=== PATIENT | male | born 1990 | race Caucasian/White ===

== ENCOUNTER 2017-08-25 15:01 | Emergency (ER) | payer OTHER ==
[2017-08-25] MEDS ORDERED: SODIUM CHLORIDE 0.9% 1,000 ML IV STA (15:09)
[2017-08-25 15:30] LABS: Basophils # (A) 0.1 k/uL (0-0.2); Basophils % (A) 1 %; CH 29.9; Eosinophils # (A) 0.4 k/uL (0-0.7); Eosinophils % (A) 3 %; HCT 50.9 % (39.0-53.0); HDW 2.17; HGB 16.2 gm/dL (13.0-17.5); Luc # (Auto) 0.15; Luc % (Auto) 2; Lymphocytes # (A) 2.2 k/uL (1.0-4.8); Lymphocytes % (A) 21 %; MCHC 31.9 g/dL (31.0-37.0); MCV 90.9 fL (80.0-100.0); Mean Platelet Volume 7.5; Monocytes # (A) 0.8 k/uL (0-1.0); Monocytes % (A) 8 %; Neutrophils # (A) 6.7 k/uL (1.3-7.7); Neutrophils % (A) 66 %; RBC 5.59 m/uL (4.30-5.90); RDW 13.7 % (11.5-15.5); WBC 10.2 k/uL (3.8-10.6); WBC (Perox) 10.02
[2017-08-25 15:46] LABS: ALT 15 U/L (21-72); AST 67 U/L (17-59); Acetaminophen <10.0 ug/mL; Alcohol <10 mg/dL; Alkaline Phosphatase 81 U/L (38-126); Anion Gap 13 mmol/L; Blood Urea Nitrogen 12 mg/dL (9-20); Calcium 9.9 mg/dL (8.4-10.2); Carbon Dioxide 26 mmol/L (22-30); Chloride 102 mmol/L (98-107); Glucose 84 mg/dL (74-99); Non-African American GFR(MDRD) >60 (>60 ml/min/1.73 sqM); Salicylate <1.0 mg/dL; Sodium 141 mmol/L (137-145); Total Bilirubin 1.6 mg/dL (0.2-1.3); Total Protein 8.6 g/dL (6.3-8.2)
[2017-08-25 15:52] LABS: Potassium 4.6 mmol/L (3.5-5.1)
--- NOTE | 2017-08-25 15:52 | ED ---
General Adult HPI - General Source: patient, family, police, EMS, RN notes reviewed Mode of arrival: ambulatory Limitations: no limitations <Oneil Poole - Last Filed: 08/25/17 16:00> <Oneil Gutierrez - Last Filed: 08/26/17 21:59> - General Chief complaint: Overdose Stated complaint: Suicidal/Overdose Time Seen by Provider: 08/25/17 15:09 - History of Present Illness Initial comments: 27-year-old male presenting with suicide attempt. Patient took approximately 2425 mg Benadryl tablets. Patient's called EMS. Patient is not willing to fully participate in the history. He does deny any physical pain, denies shortness of breath. Denies ingesting any other substances. Patient has had similar attempt approximately one year ago where he took sleeping pills. Patient's states that he is very depressed, they are currently going through a divorce. Patient wrote a suicide note to his 5-year-old daughter. Patient is not currently on any antidepressant medications, not currently in therapy. (Oneil Poole) - Related Data Home Medications Medication Instructions Recorded Confirmed No Known Home Medications [No 08/25/17 08/25/17 Known Home Medications] Allergies Allergy/AdvReac Type Severity Reaction Status Date / Time No Known Allergies Allergy Verified 08/25/17 15:08 Review of Systems ROS Other: All systems not noted in ROS Statement are negative. <Oneil Poole - Last Filed: 08/25/17 16:00> ROS Other: All systems not noted in ROS Statement are negative. <Oneil Gutierrez - Last Filed: 08/26/17 21:59> ROS Statement: Those systems with pertinent positive or pertinent negative responses have been documented in the HPI. Past Medical History Additional Past Medical History / Comment(s): Sleeping disorder History of Any Multi-Drug Resistant Organisms: None Reported Past Surgical History: Unable to Obtain Additional Past Surgical History / Comment(s): Possibly spleen surgery-pt lethargic and stating spleen surgery-fiancee does not know if he had this surgery for sure. Past Anesthesia/Blood Transfusion Reactions: No Reported Reaction Past Psychological History: Depression Smoking Status: Current every day smoker Past Alcohol Use History: Occasional Past Drug Use History: None Reported - Past Family History Mother Family Medical History: No Reported History Additional Family Medical History / Comment(s): Zurdo thomas's mother is healthy Father Family Medical History: Respiratory Disorder Additional Family Medical History / Comment(s): Father of lung disease at age 43 yrs. <JassonjannieOneil N - Last Filed: 08/25/17 16:00> General Exam Limitations: no limitations General appearance: alert, in no apparent distress Head exam: Present: atraumatic, normocephalic Eye exam: Present: normal appearance, PERRL (6 mm). Absent: nystagmus ENT exam: Present: normal exam Neck exam: Present: normal inspection. Absent: tenderness, meningismus Respiratory exam: Present: normal lung sounds bilaterally. Absent: respiratory distress Cardiovascular Exam: Present: regular rate, normal rhythm GI/Abdominal exam: Present: soft, normal bowel sounds. Absent: distended, tenderness Extremities exam: Present: normal inspection, normal capillary refill. Absent: pedal edema Neurological exam: Present: alert, oriented X3, CN II-XII intact. Absent: motor sensory deficit Psychiatric exam: Present: depressed, flat affect, suicidal ideation Skin exam: Present: warm, dry, intact <SherlynOneil aparicio N - Last Filed: 08/25/17 16:00> Vital Signs 08/25/17 08/25/17 08/25/17 15:06 15:26 16:17 Temperature 97.9 F Pulse Rate 115 H 74 87 Respiratory 18 18 18 Rate Blood Pressure 122/77 129/85 103/66 O2 Sat by Pulse 98 98 97 Oximetry 08/25/17 08/25/17 08/25/17 17:13 19:11 20:39 Temperature Pulse Rate 79 70 65 Respiratory 18 18 18 Rate Blood Pressure 106/71 98/65 105/72 O2 Sat by Pulse 100 96 98 Oximetry 08/26/17 08/26/17 08/26/17 00:11 06:19 08:19 Temperature Pulse Rate 72 59 L 78 Respiratory 16 16 16 Rate Blood Pressure 112/56 114/69 107/58 O2 Sat by Pulse 96 96 100 Oximetry 08/26/17 19:00 Temperature 97.6 F Pulse Rate 73 Respiratory 18 Rate Blood Pressure 104/59 O2 Sat by Pulse 96 Oximetry EKG Findings - EKG Comments: EKG Findings:: EKG shows normal sinus rhythm, ventricular rate 81, MT interval 146, QRS duration 94, QTC 455, no signs of arrhythmia or ischemia <Oneil Poole - Last Filed: 08/25/17 16:00> Medical Decision Making - Lab Data Result diagrams: 08/25/17 15:22 08/25/17 15:22 <Oneil Poole - Last Filed: 08/25/17 16:00> - Lab Data Result diagrams: 08/25/17 15:22 08/25/17 15:22 <Oneil Gutierrez - Last Filed: 08/26/17 21:59> - Medical Decision Making 27-year-old male presenting with suicide attempt taking 24 25 mg Benadryl. Patient is initially tachycardic, heart rate improves into the 80s. He has pupils measuring 6 mm bilaterally. Combined with tachycardia this is consistent with anticholinergic overdose. Case is discussed with poison control , recommend supportive care. Laboratory studies normal white blood cell count, stable hemoglobin, INR 1.2, mild elevation in total bili 1.6, AST is 67, ALT normal, lactic acid normal 1.2 , aspirin Tylenol and ethanol levels are all negative. EKG shows no signs of tachycardia or QT prolongation. No arrhythmia. Patient will be observed, awaiting medical clearance. Patient will be evaluated by EPS. Case is discussed with EPS nurse. Patient's care is signed out to Dr. Gutierrez at 1700 awaiting medical clearance and EPS evaluation. (Oneil Poole) 08/25/17: The certification is completed and staff is working [facility]. 08/26/17: The psychiatric staff is finally able to obtain [facility] [place]. They are sending their ambulance to pick him up. He will likely be transferred there shortly for further psychiatric treatment. ( Oneil Gutierrez) - Lab Data Lab Results 08/25/17 08/25/17 08/25/17 Range/Units 15:22 15:22 15:22 WBC 10.2 (3.8-10.6) k/uL RBC 5.59 (4.30-5.90) m/uL Hgb 16.2 (13.0-17.5) gm/dL Hct 50.9 (39.0-53.0) % MCV 90.9 (80.0-100.0) fL MCH 29.0 (25.0-35.0) pg MCHC 31.9 (31.0-37.0) g/dL RDW 13.7 (11.5-15.5) % Plt Count 297 (150-450) k/uL Neutrophils % 66 % Lymphocytes % 21 % Monocytes % 8 % Eosinophils % 3 % Basophils % 1 % Neutrophils # 6.7 (1.3-7.7) k/uL Lymphocytes # 2.2 (1.0-4.8) k/uL Monocytes # 0.8 (0-1.0) k/uL Eosinophils # 0.4 (0-0.7) k/uL Basophils # 0.1 (0-0.2) k/uL PT 11.3 (9.0-12.0) sec INR 1.2 H (<1.2) Sodium 141 (137-145) mmol/L Potassium 4.6 (3.5-5.1) mmol/L Chloride 102 (98-107) mmol/L Carbon Dioxide 26 (22-30) mmol/L Anion Gap 13 mmol/L BUN 12 (9-20) mg/dL Creatinine 0.95 (0.66-1.25) mg/dL Est GFR (MDRD) Af Amer >60 (>60 ml/min/1.73 sqM) Est GFR (MDRD) Non-Af >60 (>60 ml/min/1.73 sqM) Glucose 84 (74-99) mg/dL Plasma Lactic Acid Jae (0.7-2.0) mmol/L Calcium 9.9 (8.4-10.2) mg/dL Magnesium (1.6-2.3) mg/dL Total Bilirubin 1.6 H (0.2-1.3) mg/dL AST 67 H (17-59) U/L ALT 15 L (21-72) U/L Alkaline Phosphatase 81 (38-126) U/L Total Protein 8.6 H (6.3-8.2) g/dL Albumin 4.9 (3.5-5.0) g/dL Salicylates <1.0 mg/dL Urine Opiates Screen (NotDetected) Ur Oxycodone Screen (NotDetected) Urine Methadone Screen (NotDetected) Ur Propoxyphene Screen (NotDetected) Acetaminophen <10.0 ug/mL Ur Barbiturates Screen (NotDetected) U Tricyclic Antidepress (NotDetected) Ur Phencyclidine Scrn (NotDetected) Ur Amphetamines Screen (NotDetected) U Methamphetamines Scrn (NotDetected) U Benzodiazepines Scrn (NotDetected) Urine Cocaine Screen (NotDetected) U Marijuana (THC) Screen (NotDetected) Serum Alcohol <10 mg/dL 08/25/17 08/25/17 08/25/17 Range/Units 15:22 15:22 21:34 WBC (3.8-10.6) k/uL RBC (4.30-5.90) m/uL Hgb (13.0-17.5) gm/dL Hct (39.0-53.0) % MCV (80.0-100.0) fL MCH (25.0-35.0) pg MCHC (31.0-37.0) g/dL RDW (11.5-15.5) % Plt Count (150-450) k/uL Neutrophils % % Lymphocytes % % Monocytes % % Eosinophils % % Basophils % % Neutrophils # (1.3-7.7) k/uL Lymphocytes # (1.0-4.8) k/uL Monocytes # (0-1.0) k/uL Eosinophils # (0-0.7) k/uL Basophils # (0-0.2) k/uL PT (9.0-12.0) sec INR (<1.2) Sodium (137-145) mmol/L Potassium (3.5-5.1) mmol/L Chloride (98-107) mmol/L Carbon Dioxide (22-30) mmol/L Anion Gap mmol/L BUN (9-20) mg/dL Creatinine (0.66-1.25) mg/dL Est GFR (MDRD) Af Amer (>60 ml/min/1.73 sqM) Est GFR (MDRD) Non-Af (>60 ml/min/1.73 sqM) Glucose (74-99) mg/dL Plasma Lactic Acid Jae 1.2 (0.7-2.0) mmol/L Calcium (8.4-10.2) mg/dL Magnesium 1.8 (1.6-2.3) mg/dL Total Bilirubin (0.2-1.3) mg/dL AST (17-59) U/L ALT (21-72) U/L Alkaline Phosphatase (38-126) U/L Total Protein (6.3-8.2) g/dL Albumin (3.5-5.0) g/dL Salicylates mg/dL Urine Opiates Screen Not Detected (NotDetected) Ur Oxycodone Screen Not Detected (NotDetected) Urine Methadone Screen Not Detected (NotDetected) Ur Propoxyphene Screen Not Detected (NotDetected) Acetaminophen ug/mL Ur Barbiturates Screen Not Detected (NotDetected) U Tricyclic Antidepress Not Detected (NotDetected) Ur Phencyclidine Scrn Not Detected (NotDetected) Ur Amphetamines Screen Not Detected (NotDetected) U Methamphetamines Scrn Not Detected (NotDetected) U Benzodiazepines Scrn Not Detected (NotDetected) Urine Cocaine Screen Not Detected (NotDetected) U Marijuana (THC) Screen Not Detected (NotDetected) Serum Alcohol mg/dL Disposition <Oneil Poole - Last Filed: 08/25/17 16:00> Time of Disposition: 21:58 - Out of Hospital Transfer - Req. Specs Out of Hospital Transfer - Requested Specifics: Psychiatric Non-ICU ([facility]) <Oneil Gutierrez - Last Filed: 08/26/17 21:59> Clinical Impression: Drug overdose, Depression, Suicidal ideation Disposition: TRANSFER TO PSYCH HOSP/UNIT Condition: Fair Referrals: None,Stated [Primary Care Provider] - 1-2 days
[2017-08-25 16:01] LABS: INR 1.2 (<1.2); Prothrombin Time 11.3 sec (9.0-12.0)
[2017-08-25] MEDS ORDERED: SODIUM CHLORIDE 0.9% 1,000 ML IV SCH (17:00)
[2017-08-26] MEDS ORDERED: NICOTINE 21MG/24HR PATCH TRANSDERM STA (08:13)
[2017-08-26 22:08] VITALS: BP 104/55; PULSE 55; RESP 17; TEMP 98
== END 2017-08-26 22:57 ==
LOC: EC 15:01
DX: T45.0X2A Poisoning by antiallergic and antiemetic drugs, intentional self-harm, initial encounter (principal); R00.0 Tachycardia, unspecified; F32.9 Major depressive disorder, single episode, unspecified; F17.200 Nicotine dependence, unspecified, uncomplicated
CPT/HCPCS: 99285; 96360; 96361 ×15; 82075; 36415; 93005; 80053; 83605; 83735; 85025; 85610; 80306; 83520 ×2; 80320; S4990

== ENCOUNTER 2018-10-25 14:58 | Emergency (ER) | payer OTHER ==
--- NOTE | 2018-10-25 15:57 | ED ---
Psych HPI - General Source: patient, RN notes reviewed Mode of arrival: ambulatory Limitations: no limitations <Lazarus Oakes - Last Filed: 10/25/18 15:56> <Oneil Poole - Last Filed: 10/25/18 23:44> - General Chief Complaint: Psychiatric Symptoms Stated Complaint: Mental Health Time Seen by Provider: 10/25/18 15:23 - History of Present Illness Initial Comments: 28-year-old male presents emergency Department with police for psychiatric evaluation. Patient states that he is suicidal. Patient states he will kill himself in anyway that he can find. Patient states he has been drinking alcohol today. Patient states she also recently broke up with his girlfriend. Patient denies any physical complaints denies any drug use. Patient states she supposed be taking psychiatric medications though is not taking him. (Lazarus Oakes) - Related Data Home Medications Medication Instructions Recorded Confirmed No Known Home Medications 08/25/17 08/25/17 Allergies Allergy/AdvReac Type Severity Reaction Status Date / Time No Known Allergies Allergy Verified 10/25/18 15:08 Review of Systems ROS Other: All systems not noted in ROS Statement are negative. <Lazarus Oakes - Last Filed: 10/25/18 15:56> ROS Other: All systems not noted in ROS Statement are negative. <Oneil Poole - Last Filed: 10/25/18 23:44> ROS Statement: Those systems with pertinent positive or pertinent negative responses have been documented in the HPI. Past Medical History Past Medical History: No Reported History Additional Past Medical History / Comment(s): Sleeping disorder History of Any Multi-Drug Resistant Organisms: None Reported Past Surgical History: No Surgical Hx Reported Additional Past Surgical History / Comment(s): Possibly spleen surgery-pt lethargic and stating spleen surgery-shanta does not know if he had this surgery for sure. Past Anesthesia/Blood Transfusion Reactions: No Reported Reaction Past Psychological History: Anxiety, Depression Smoking Status: Current every day smoker Past Alcohol Use History: Occasional Past Drug Use History: None Reported - Past Family History Mother Family Medical History: No Reported History Additional Family Medical History / Comment(s): Per shanta-pt's mother is healthy Father Family Medical History: Respiratory Disorder Additional Family Medical History / Comment(s): Father of lung disease at age 43 yrs. <Lazarus Oakes - Last Filed: 10/25/18 15:56> General Exam Limitations: no limitations General appearance: alert, in no apparent distress Head exam: Present: atraumatic, normocephalic, normal inspection Eye exam: Present: normal appearance, PERRL, EOMI. Absent: scleral icterus, conjunctival injection, periorbital swelling Respiratory exam: Present: normal lung sounds bilaterally. Absent: respiratory distress, wheezes, rales, rhonchi, stridor Cardiovascular Exam: Present: regular rate, normal rhythm, normal heart sounds. Absent: systolic murmur, diastolic murmur, rubs, gallop, clicks GI/Abdominal exam: Present: soft, normal bowel sounds. Absent: distended, tenderness, guarding, rebound, rigid Neurological exam: Present: alert, oriented X3, CN II-XII intact Psychiatric exam: Present: depressed <Lazarus Oakes - Last Filed: 10/25/18 15:56> Vital Signs 10/25/18 15:05 Temperature 97.3 F L Pulse Rate 99 Respiratory 20 Rate Blood Pressure 135/83 O2 Sat by Pulse 97 Oximetry Medical Decision Making <Lazarus Oakes - Last Filed: 10/25/18 15:56> <Oneil Poole - Last Filed: 10/25/18 23:44> - Medical Decision Making Patient initially presented with alcohol intoxication and suicidal ideation. Did reevaluate this patient after EPS. Posterior with the patient was stable for discharge, no longer suicidal. I did confirm this, patient denies suicidal ideation. Will be discharged home with close outpatient follow-up. (Oneil Poole) - Lab Data Lab Results 10/25/18 Range/Units 15:30 Urine Opiates Screen Not Detected (NotDetected) Ur Oxycodone Screen Not Detected (NotDetected) Urine Methadone Screen Not Detected (NotDetected) Ur Propoxyphene Screen Not Detected (NotDetected) Ur Barbiturates Screen Not Detected (NotDetected) U Tricyclic Antidepress Not Detected (NotDetected) Ur Phencyclidine Scrn Not Detected (NotDetected) Ur Amphetamines Screen Not Detected (NotDetected) U Methamphetamines Scrn Not Detected (NotDetected) U Benzodiazepines Scrn Not Detected (NotDetected) Urine Cocaine Screen Not Detected (NotDetected) U Marijuana (THC) Screen Not Detected (NotDetected) Disposition <Lazarus Oakes M - Last Filed: 10/25/18 15:56> Is patient prescribed a controlled substance at d/c from ED?: No Time of Disposition: 23:44 <Oneil Poole - Last Filed: 10/25/18 23:44> Clinical Impression: Depression, Alcohol abuse Disposition: HOME SELF-CARE Condition: Fair Instructions (If sedation given, give patient instructions): Alcohol Intoxication (ED), Depression (ED) Additional Instructions: Please follow up with community mental health. Referrals: None,Stated [REFERRING] - 1-2 days
[2018-10-25 16:06] LABS: Amphetamine Screen,Urine Not Detected (NotDetected); Cocaine Screen,Urine Not Detected (NotDetected); Opiate Screen,Urine Not Detected (NotDetected); Phencyclidine Screen,Urine Not Detected (NotDetected); Urn Cannabinoid Scrn Not Detected (NotDetected)
[2018-10-25 16:07] LABS: Barbiturate Screen,Urine Not Detected (NotDetected); Benzodiazepines Screen,Urine Not Detected (NotDetected); Methadone Screen, Urine Not Detected (NotDetected); Oxycodone Screen, Urine Not Detected (NotDetected); Tricyclic Antidepressant,Urine Not Detected (NotDetected)
[2018-10-26 00:17] VITALS: BP 98/67; PULSE 83; RESP 19; TEMP 98
== END 2018-10-26 00:13 | disposition home or self-care (01) ==
LOC: EC 14:58
DX: F32.9 Major depressive disorder, single episode, unspecified (principal); F10.10 Alcohol abuse, uncomplicated; F17.200 Nicotine dependence, unspecified, uncomplicated
CPT/HCPCS: 80306; 82075; 99285

== ENCOUNTER 2018-11-03 12:57 | Emergency (ER) | payer OTHER ==
--- NOTE | 2018-11-03 15:06 | ED ---
Psych HPI - General Source: patient, RN notes reviewed Mode of arrival: ambulatory Limitations: no limitations <Lazarus Oakes - Last Filed: 11/03/18 15:04> <Trace Hoover - Last Filed: 11/03/18 20:28> - General Chief Complaint: Psychiatric Symptoms Stated Complaint: Petitioned, mental health Time Seen by Provider: 11/03/18 14:35 - History of Present Illness Initial Comments: 28-year-old male presents emergency Department for psychiatric evaluation. Patient states that he was feeling depressed and suicidal earlier but states that is not as bad now. Patient does admit to alcohol use and abuse. Patient denies any use today no illicit drug use patient denies any homicidal ideation denies any physical complaints. (Lazarus Oakes) - Related Data Home Medications Medication Instructions Recorded Confirmed Fluticasone Nasal [place] [Flonase 1 spray EA NOSTRIL DAILY PRN 11/03/18 11/03/18 Nasal [place]] Melatonin 3 mg PO HS 11/03/18 11/03/18 Venlafaxine HCl [Effexor XR] 225 mg PO DAILY 11/03/18 11/03/18 hydrOXYzine PAMOATE [Vistaril] 50 mg PO TID PRN 11/03/18 11/03/18 traZODone HCL 50 - 100 mg PO HS PRN 11/03/18 11/03/18 Allergies Allergy/AdvReac Type Severity Reaction Status Date / Time No Known Allergies Allergy Verified 11/03/18 16:05 Review of Systems ROS Other: All systems not noted in ROS Statement are negative. <Lazarus Oakes - Last Filed: 11/03/18 15:04> ROS Other: All systems not noted in ROS Statement are negative. <Trace Hoover - Last Filed: 11/03/18 20:28> ROS Statement: Those systems with pertinent positive or pertinent negative responses have been documented in the HPI. Past Medical History Past Medical History: No Reported History Additional Past Medical History / Comment(s): Sleeping disorder History of Any Multi-Drug Resistant Organisms: None Reported Past Surgical History: No Surgical Hx Reported Additional Past Surgical History / Comment(s): Possibly spleen surgery-pt lethargic and stating spleen surgery-fiancee does not know if he had this surgery for sure. Past Anesthesia/Blood Transfusion Reactions: No Reported Reaction Past Psychological History: Anxiety, Depression Smoking Status: Current every day smoker Past Alcohol Use History: Occasional Past Drug Use History: None Reported - Past Family History Mother Family Medical History: No Reported History Additional Family Medical History / Comment(s): Zurdo thomas's mother is healthy Father Family Medical History: Respiratory Disorder Additional Family Medical History / Comment(s): Father of lung disease at age 43 yrs. <Lazarus Oakes - Last Filed: 11/03/18 15:04> General Exam General appearance: alert, in no apparent distress Head exam: Present: atraumatic, normocephalic, normal inspection Eye exam: Present: normal appearance, PERRL, EOMI. Absent: scleral icterus, conjunctival injection, periorbital swelling ENT exam: Present: normal exam, normal oropharynx, mucous membranes moist Neck exam: Present: normal inspection, full ROM. Absent: tenderness, meningismus, lymphadenopathy Respiratory exam: Present: normal lung sounds bilaterally. Absent: respiratory distress, wheezes, rales, rhonchi, stridor Cardiovascular Exam: Present: regular rate, normal rhythm, normal heart sounds. Absent: systolic murmur, diastolic murmur, rubs, gallop, clicks GI/Abdominal exam: Present: soft, normal bowel sounds. Absent: distended, tenderness, guarding, rebound, rigid Neurological exam: Present: alert, oriented X3, CN II-XII intact Psychiatric exam: Present: anxious <Lazarus Oakes - Last Filed: 11/03/18 15:04> General appearance: alert, in no apparent distress Head exam: Present: atraumatic, normocephalic, normal inspection Eye exam: Present: normal appearance, PERRL, EOMI. Absent: scleral icterus, conjunctival injection, periorbital swelling ENT exam: Present: normal exam, mucous membranes moist Neck exam: Present: normal inspection. Absent: tenderness, meningismus, lymphadenopathy Respiratory exam: Present: normal lung sounds bilaterally. Absent: respiratory distress, wheezes, rales, rhonchi, stridor Cardiovascular Exam: Present: regular rate, normal rhythm, normal heart sounds. Absent: systolic murmur, diastolic murmur, rubs, gallop, clicks GI/Abdominal exam: Present: soft, normal bowel sounds. Absent: distended, tenderness, guarding, rebound, rigid Extremities exam: Present: normal inspection, full ROM, normal capillary refill. Absent: tenderness, pedal edema, joint swelling, calf tenderness Back exam: Present: normal inspection Neurological exam: Present: alert, oriented X3, CN II-XII intact Psychiatric exam: Present: normal affect, normal mood Skin exam: Present: warm, dry, intact, normal color. Absent: rash <Trace Hoover - Last Filed: 11/03/18 20:28> Vital Signs 11/03/18 13:23 Temperature 98.3 F Pulse Rate 77 Respiratory 18 Rate Blood Pressure 120/72 O2 Sat by Pulse 97 Oximetry Medical Decision Making <Lazarus Oakes - Last Filed: 11/03/18 15:04> <Trace Hoover - Last Filed: 11/03/18 20:28> - Medical Decision Making 28-year-old male who will be low be admitted for psychiatric evaluation and treatment (Trace Hoover) - Lab Data Lab Results 11/03/18 Range/Units 17:44 Urine Opiates Screen Not Detected (NotDetected) Ur Oxycodone Screen Not Detected (NotDetected) Urine Methadone Screen Not Detected (NotDetected) Ur Propoxyphene Screen Not Detected (NotDetected) Ur Barbiturates Screen Not Detected (NotDetected) U Tricyclic Antidepress Not Detected (NotDetected) Ur Phencyclidine Scrn Not Detected (NotDetected) Ur Amphetamines Screen Not Detected (NotDetected) U Methamphetamines Scrn Not Detected (NotDetected) U Benzodiazepines Scrn Not Detected (NotDetected) Urine Cocaine Screen Not Detected (NotDetected) U Marijuana (THC) Screen Not Detected (NotDetected) Disposition <Lazarus Oakes - Last Filed: 11/03/18 15:04> Is patient prescribed a controlled substance at d/c from ED?: No <Trace Hoover - Last Filed: 11/03/18 20:28> Clinical Impression: Drug overdose, Depression, Suicidal ideation Disposition: TRANSFER TO PSYCH HOSP/UNIT Condition: Fair Referrals: [facility],Clinic [Primary Care Provider] - 1-2 days
[2018-11-03] MEDS ORDERED: LORazepam 1 MG TAB PO STA (18:34)
[2018-11-03 18:36] LABS: Amphetamine Screen,Urine Not Detected (NotDetected); Barbiturate Screen,Urine Not Detected (NotDetected); Benzodiazepines Screen,Urine Not Detected (NotDetected); Cocaine Screen,Urine Not Detected (NotDetected); Methadone Screen, Urine Not Detected (NotDetected); Opiate Screen,Urine Not Detected (NotDetected); Oxycodone Screen, Urine Not Detected (NotDetected); Phencyclidine Screen,Urine Not Detected (NotDetected); Tricyclic Antidepressant,Urine Not Detected (NotDetected); Urn Cannabinoid Scrn Not Detected (NotDetected)
[2018-11-03 23:47] LABS: Basophils # (A) 0.1 k/uL (0-0.2); Basophils % (A) 1 %; Eosinophils # (A) 0.3 k/uL (0-0.7); Eosinophils % (A) 4 %; HCT 42.5 % (39.0-53.0); HGB 14.3 gm/dL (13.0-17.5); Lymphocytes # (A) 2.2 k/uL (1.0-4.8); Lymphocytes % (A) 33 %; MCHC 33.7 g/dL (31.0-37.0); MCV 91.9 fL (80.0-100.0); Mean Platelet Volume 6.6; Monocytes # (A) 0.8 k/uL (0-1.0); Monocytes % (A) 13 %; Neutrophils # (A) 3.1 k/uL (1.3-7.7); Neutrophils % (A) 47 %; Platelet Count 274 k/uL (150-450); RBC 4.63 m/uL (4.30-5.90); RDW 13.7 % (11.5-15.5); WBC 6.6 k/uL (3.8-10.6)
[2018-11-03 23:50] LABS: Amorphous Sediment,Urine Rare /hpf; Appearance,Urine Cloudy (Clear); Bilirubin,Urine Negative (Negative); Blood,Urine Negative (Negative); Color,Urine Light Yellow; Glucose,Urine (UA) Negative (Negative); Ketones,Urine Negative (Negative); Leukocyte Esterase,Urine Negative (Negative); Nitrite,Urine Negative (Negative); Protein,Urine Negative (Negative); RBC,Urine <1 /hpf (0-5); Specific Gravity,Urine 1.011 (1.001-1.035); Urobilinogen,Urine <2.0 mg/dL (<2.0); WBC,Urine 1 /hpf (0-5)
[2018-11-04 00:01] LABS: ALT 29 U/L (21-72); AST 35 U/L (17-59); Albumin 3.9 g/dL (3.5-5.0); Alkaline Phosphatase 50 U/L (38-126); Anion Gap 5 mmol/L; Blood Urea Nitrogen 18 mg/dL (9-20); Calcium 9.2 mg/dL (8.4-10.2); Carbon Dioxide 29 mmol/L (22-30); Chloride 102 mmol/L (98-107); Glucose 98 mg/dL (74-99); Potassium 4.8 mmol/L (3.5-5.1); Sodium 136 mmol/L (137-145); Total Bilirubin 0.7 mg/dL (0.2-1.3); Total Protein 6.6 g/dL (6.3-8.2)
[2018-11-04] MEDS ORDERED: LORazepam 1 MG TAB PO STA ×2 (11:39→20:04)
[2018-11-05 04:34] VITALS: RESP 16
[2018-11-05] MEDS ORDERED: LORazepam 1 MG TAB PO STA ×2 (06:44→12:56)
[2018-11-05 11:48] VITALS: BP 103/54; PULSE 62; TEMP 97.9
== END 2018-11-05 13:08 ==
LOC: EC 12:57
DX: F32.9 Major depressive disorder, single episode, unspecified (principal); T50.902A Poisoning by unspecified drugs, medicaments and biological substances, intentional self-harm, initial encounter; R45.851 Suicidal ideations; F41.9 Anxiety disorder, unspecified; F17.200 Nicotine dependence, unspecified, uncomplicated; Z79.899 Other long term (current) drug therapy
CPT/HCPCS: 36415; 80053; 80306; 81001; 84443; 85025; 93005; 99285

== ENCOUNTER 2019-03-21 01:55 | Inpatient (IN) | payer OTHER ==
[2019-03-21] MEDS ORDERED: ACTIVATED CHARCOAL-SORBITOL 50 GM/240 ML BOTTLE ONE (02:05)
[2019-03-21] MEDS ORDERED: ACTIVATED CHARCOAL 50 GM/240 ML BOTTLE PO STA (02:24)
[2019-03-21 03:10] LABS: Acetaminophen <10.0 ug/mL; African American GFR (CKD) >90 (>60 ml/min/1.73 sqM); Anion Gap 10 mmol/L; Blood Urea Nitrogen 11 mg/dL (9-20); Calcium 8.9 mg/dL (8.4-10.2); Carbon Dioxide 23 mmol/L (22-30); Chloride 109 mmol/L (98-107); Glucose 111 mg/dL (74-99); Potassium 4.2 mmol/L (3.5-5.1); Salicylate <1.0 mg/dL; Sodium 142 mmol/L (137-145)
[2019-03-21 03:17] LABS: Alcohol 256 mg/dL
[2019-03-21 03:22] LABS: Basophils # (A) 0.1 k/uL (0-0.2); Basophils % (A) 1 %; Eosinophils # (A) 0.2 k/uL (0-0.7); Eosinophils % (A) 4 %; HCT 46.7 % (39.0-53.0); HGB 15.1 gm/dL (13.0-17.5); Lymphocytes # (A) 2.4 k/uL (1.0-4.8); Lymphocytes % (A) 38 %; MCH 29.3 pg (25.0-35.0); MCHC 32.3 g/dL (31.0-37.0); MCV 90.8 fL (80.0-100.0); Mean Platelet Volume 7.2; Monocytes # (A) 0.4 k/uL (0-1.0); Monocytes % (A) 7 %; Neutrophils % (A) 48 %; Platelet Count 251 k/uL (150-450); RBC 5.14 m/uL (4.30-5.90); WBC 6.3 k/uL (3.8-10.6)
--- NOTE | 2019-03-21 03:32 | ED ---
Psych HPI - General Source: patient, police, EMS Mode of arrival: EMS <Elizabeth Cai - Last Filed: 03/21/19 03:32> <Oneil Paz - Last Filed: 03/21/19 12:17> - General Chief Complaint: Psychiatric Symptoms Stated Complaint: Drug Overdose Time Seen by Provider: 03/21/19 02:23 - History of Present Illness Initial Comments: Gordo Patricio is a 29-year-old gentleman is brought to the emergency department today via EMS with police escort for evaluation of a suicidal overdose. Patient reports he's been drinking alcohol and he then decided to take will was left in his bottle of 50 mg hydroxyzine. Patient estimates he took 20-25 pills approximately 20 minutes prior to calling EMS. (Elizabeth Cai) - Related Data Home Medications Medication Instructions Recorded Confirmed Venlafaxine HCl [Effexor XR] 225 mg PO DAILY 11/03/18 03/21/19 hydrOXYzine PAMOATE [Vistaril] 50 mg PO TID PRN 11/03/18 03/21/19 [place] Carbonate Unknown Dose 1 cap PO BID 03/21/19 03/21/19 Allergies Allergy/AdvReac Type Severity Reaction Status Date / Time No Known Allergies Allergy Verified 03/21/19 10:44 Review of Systems ROS Other: All systems not noted in ROS Statement are negative. <Elizabeth Cai - Last Filed: 03/21/19 03:32> ROS Other: All systems not noted in ROS Statement are negative. <Oneil Paz - Last Filed: 03/21/19 12:17> ROS Statement: Those systems with pertinent positive or pertinent negative responses have been documented in the HPI. Past Medical History Past Medical History: No Reported History Additional Past Medical History / Comment(s): Sleeping disorder History of Any Multi-Drug Resistant Organisms: None Reported Past Surgical History: No Surgical Hx Reported Additional Past Surgical History / Comment(s): Possibly spleen surgery-pt lethargic and stating spleen surgery-fiancee does not know if he had this surgery for sure. Past Anesthesia/Blood Transfusion Reactions: No Reported Reaction Past Psychological History: Anxiety, Depression, PTSD Smoking Status: Current every day smoker Past Alcohol Use History: Occasional Past Drug Use History: None Reported - Past Family History Mother Family Medical History: No Reported History Additional Family Medical History / Comment(s): Per fiancee-pt's mother is healthy Father Family Medical History: Respiratory Disorder Additional Family Medical History / Comment(s): Father of lung disease at age 43 yrs. <Elizabeth Cai - Last Filed: 03/21/19 03:32> General Exam Limitations: no limitations <Elizabeth Cai - Last Filed: 03/21/19 03:32> - General Exam Comments Initial Comments: Physical Exam GENERAL: Patient is well-developed and well-nourished. Patient is nontoxic and well-hydrated and is in no distress. HENT: Normocephalic, Atraumatic. EYES: PERRL, EOMI Pupils not dilated PULMONARY: Unlabored respirations. No audible rales rhonchi or wheezing was noted. CARDIOVASCULAR: There is a regular rate and rhythm without any murmurs gallops or rubs. ABDOMEN: Soft and nontender with normal bowel sounds. SKIN: Skin is clear with no lesions or rashes and otherwise unremarkable. : Deferred NEUROLOGIC: Patient is alert and oriented x3. Moving all extremities spontaneously MUSCULOSKELETAL: Normal extremities with adequate strength and full range of motion. No lower extremity swelling or edema. No calf tenderness. PSYCHIATRIC: Suicidal (Elizabeth Cai) Course <Oneil Paz - Last Filed: 03/21/19 12:17> Vital Signs 03/21/19 03/21/19 03/21/19 02:18 02:32 04:37 Temperature 98.8 F Pulse Rate 102 H 79 90 Respiratory 20 10 L 18 Rate Blood Pressure 113/87 116/69 106/55 O2 Sat by Pulse 93 L 96 Oximetry 03/21/19 06:00 Temperature Pulse Rate 79 Respiratory 18 Rate Blood Pressure 111/89 O2 Sat by Pulse 96 Oximetry - Reevaluation(s) Reevaluation #1: 03/21/19 12:17 The patient was endorsed me by Dr. Cai at our shift change pending sobriety. Patient was evaluated by the psychiatric service found to be depressed and suicidal and will be admitted for evaluation inpatient. (Oneil Paz) Medical Decision Making - Lab Data Result diagrams: 03/21/19 02:49 03/21/19 02:49 <Elizabeth Cai - Last Filed: 03/21/19 03:32> - Lab Data Result diagrams: 03/21/19 02:49 03/21/19 02:49 <JacksonOneil - Last Filed: 03/21/19 12:17> - Medical Decision Making The patient was seen and evaluated immediately upon arrival to emergency department. Patient reports his ingestion was approximately 30 minutes prior to arrival. Oral activated charcoal was ordered and given upon arrival, patient drank charcoal without difficulty Labs and EKG ordered EKG was obtained at 2 AM, rate is 90 rhythm is sinus is normal axis are normal intervals, CO 152, QR 66, QTC is 428 there is no acute ST elevations depressions no evidence of acute ischemia or infarction. 3:35am Patient reevaluated, he sleeping comfortably. Heart rate is 85. At this time I have a very low suspicion for true anticholinergic toxidrome. (Elizabeth Cai) - Lab Data Lab Results 03/21/19 03/21/19 03/21/19 Range/Units 02:49 02:49 05:53 WBC 6.3 (3.8-10.6) k/uL RBC 5.14 (4.30-5.90) m/uL Hgb 15.1 (13.0-17.5) gm/dL Hct 46.7 (39.0-53.0) % MCV 90.8 (80.0-100.0) fL MCH 29.3 (25.0-35.0) pg MCHC 32.3 (31.0-37.0) g/dL RDW 15.0 (11.5-15.5) % Plt Count 251 (150-450) k/uL Neutrophils % 48 % Lymphocytes % 38 % Monocytes % 7 % Eosinophils % 4 % Basophils % 1 % Neutrophils # 3.0 (1.3-7.7) k/uL Lymphocytes # 2.4 (1.0-4.8) k/uL Monocytes # 0.4 (0-1.0) k/uL Eosinophils # 0.2 (0-0.7) k/uL Basophils # 0.1 (0-0.2) k/uL Sodium 142 (137-145) mmol/L Potassium 4.2 (3.5-5.1) mmol/L Chloride 109 H (98-107) mmol/L Carbon Dioxide 23 (22-30) mmol/L Anion Gap 10 mmol/L BUN 11 (9-20) mg/dL Creatinine 0.60 L (0.66-1.25) mg/dL Est GFR (CKD-EPI)AfAm >90 (>60 ml/min/1.73 sqM) Est GFR (CKD-EPI)NonAf >90 (>60 ml/min/1.73 sqM) Glucose 111 H (74-99) mg/dL Calcium 8.9 (8.4-10.2) mg/dL Salicylates <1.0 mg/dL Urine Opiates Screen Not Detected (NotDetected) Ur Oxycodone Screen Not Detected (NotDetected) Urine Methadone Screen Not Detected (NotDetected) Ur Propoxyphene Screen Not Detected (NotDetected) Acetaminophen <10.0 ug/mL Ur Barbiturates Screen Not Detected (NotDetected) U Tricyclic Antidepress Not Detected (NotDetected) Ur Phencyclidine Scrn Not Detected (NotDetected) Ur Amphetamines Screen Not Detected (NotDetected) U Methamphetamines Scrn Not Detected (NotDetected) U Benzodiazepines Scrn Not Detected (NotDetected) Urine Cocaine Screen Not Detected (NotDetected) U Marijuana (THC) Screen Not Detected (NotDetected) Serum Alcohol 256 H* mg/dL Disposition <Elizabeth Cai - Last Filed: 03/21/19 03:32> <Oneil Paz - Last Filed: 03/21/19 12:17> Clinical Impression: Depression, Suicidal ideation, Alcohol intoxication Disposition: TRANSFER TO PSYCH HOSP/UNIT Condition: Stable Referrals: [facility],Clinic [Primary Care Provider] - 1-2 days
[2019-03-21 06:39] LABS: Amphetamine Screen,Urine Not Detected (NotDetected); Barbiturate Screen,Urine Not Detected (NotDetected); Benzodiazepines Screen,Urine Not Detected (NotDetected); Cocaine Screen,Urine Not Detected (NotDetected); Methadone Screen, Urine Not Detected (NotDetected); Opiate Screen,Urine Not Detected (NotDetected); Oxycodone Screen, Urine Not Detected (NotDetected); Phencyclidine Screen,Urine Not Detected (NotDetected); Tricyclic Antidepressant,Urine Not Detected (NotDetected); Urn Cannabinoid Scrn Not Detected (NotDetected)
[2019-03-21] MEDS ORDERED: MAGNESIUM HYDROXIDE 2,400 MG/10 ML CUP PO PRN (12:42)
[2019-03-21] MEDS ORDERED: ACETAMINOPHEN TAB 325 MG TAB PO PRN (12:42)
[2019-03-21] MEDS ORDERED: MAG HYDROX/AL HYDROX/SIMETH 30 ML CUP PO PRN (12:42)
[2019-03-21] MEDS ORDERED: FLUTICASONE 50MCG/SPRAY NASAL 16GM EA NOSTRIL PRN (12:48)
[2019-03-21 13:50] VITALS: BMI 20.2
--- NOTE | 2019-03-21 15:53 | P.HPMEDMHU ---
History of Present Illness H&P Date: 03/21/19 The patient is a 29-year-old male with a past medical history of PTSD, depression and anxiety who is currently admitted to acute inpatient psychiatry team with suicidal attempt with overdose after apparently taking 20-3010 mg tablets of Vistaril at home. Apparently the patient was unable to get refills of his medications of carbamazepine lithium and venlafaxine over the last 7 days and began having increased symptoms of depressed mood, the patient also began drinking heavily reports drinking 2-3 times per week each time having at least a 12 pack. The patient denies any somatic complaints, he denies chest pain, denies shortness of breath, denies abdominal pain nausea or vomiting. In the ER the patient was given activated charcoal and no residue was observed his UDS was negative however serum alcohol level was 256. Review of Systems Pertinent positives per HPI all other review of systems otherwise negative Past Medical History Past Medical History: No Reported History Additional Past Medical History / Comment(s): Sleeping disorder History of Any Multi-Drug Resistant Organisms: None Reported Past Surgical History: No Surgical Hx Reported Additional Past Surgical History / Comment(s): Possibly spleen surgery-pt lethargic and stating spleen surgery-angeloemily does not know if he had this surgery for sure. Past Anesthesia/Blood Transfusion Reactions: No Reported Reaction Past Psychological History: Anxiety, Depression, PTSD Smoking Status: Current every day smoker Past Alcohol Use History: Occasional Additional Past Alcohol Use History / Comment(s): Hx of drinking more alcohol 13-14 drinks per day on the weekend. Pt started smoking around age 12 and is about 1 ppd smoker. Past Drug Use History: None Reported - Past Family History Mother Family Medical History: No Reported History Additional Family Medical History / Comment(s): Per shanta-pt's mother is healthy Father Family Medical History: Respiratory Disorder Additional Family Medical History / Comment(s): Father of lung disease at age 43 yrs. Medications and Allergies Home Medications Medication Instructions Recorded Confirmed Type Venlafaxine HCl [Effexor XR] 225 mg PO DAILY 11/03/18 03/21/19 History hydrOXYzine PAMOATE [Vistaril] 50 mg PO TID PRN 11/03/18 03/21/19 History [place] Carbonate Unknown Dose 1 cap PO BID 03/21/19 03/21/19 History Allergies Allergy/AdvReac Type Severity Reaction Status Date / Time No Known Allergies Allergy Verified 03/21/19 13:25 Physical Exam Vitals: Vital Signs Temp Pulse Pulse Resp BP BP Pulse Ox 03/21/19 13:30 97.9 F 102 H 18 103/85 03/21/19 13:00 98.3 F 68 18 99/56 99 03/21/19 06:00 79 18 111/89 96 03/21/19 04:37 90 18 106/55 96 03/21/19 02:32 79 10 L 116/69 03/21/19 02:18 98.8 F 102 H 20 113/87 93 L Intake and Output 03/21/19 03/21/19 03/21/19 06:59 14:59 22:59 Other: Weight 58.967 kg 58.516 kg Constitutional: No acute distress, conversant, pleasant Eyes: Anicteric sclerae, moist conjunctiva, no lid-lag, PERRLA ENMT: NC/AT,Oropharynx clear, no erythema, exudates Neck:Supple, FROM, no masses, or JVD, No carotid bruits; No thyromegaly Lungs: Clear to auscultation, Clear to percussion, Normal respiratory effort, no accessory muscle use Cardiovascular: Heart regular in rate and rhythm, No murmurs, gallops, or rubs no peripheral edema Abdominal: Soft Nontender, nom distended, no guarding, no rebound or rigidity, Normoactive bowel sounds No hepatomegaly, No splenomegaly, No palpable mass No abdominal wall hernia noted Skin: Normal temperature, tone, texture, turgor, No induration No subcutaneous nodules, No rash, lesions, No ulcers Extremities:No digital cyanosis No clubbing, Pedal pulses intact and symmetrical Radial pulses intact and symmetrical Normal gait and station, No calf tenderness Psychiatric: Flat affect, poor eye contact, depressed mood, fidgety, Neuro: Muscles Strength 5/5 in all 4 extremities, Sensation to light touch grossly present throughout, Cranial nerves II-XII grossly intact. No focal sen jackie deficits Cranial Nerve Examination - Cranial Nerves Cranial Nerve II- Optic: Intact Cranial Nerve III- Oculomotor: Intact Cranial Nerve IV- Trochlear: Intact Cranial Nerve V- Trigeminal: Intact Cranial Nerve - Abducens: Intact Cranial Nerve VII- Facial: Intact Cranial Nerve VIII- Auditory: Intact Cranial Nerve IX- Glossopharyngeal: Intact Cranial Nerve X- Vagus: Intact Cranial Nerve XI- Accessory: Intact Cranial Nerve XII- Hypoglossal: Intact Results CBC & Chem 7: 03/21/19 02:49 03/21/19 02:49 Labs: Abnormal Lab Results - Last 24 Hours (Table) 03/21/19 Range/Units 02:49 Chloride 109 H (98-107) mmol/L Creatinine 0.60 L (0.66-1.25) mg/dL Glucose 111 H (74-99) mg/dL Serum Alcohol 256 H* mg/dL Thrombosis Risk Factor Assmnt - Choose All That Apply Any of the Below Risk Factors Present?: No Other Risk Factors: No Other congenital or acquired thrombophilia - If yes, enter type in comment: No Thrombosis Risk Factor Assessment Level: Very Low Risk Assessment and Plan (1) Alcohol intoxication Current Visit: Yes Status: Acute Code(s): F10.929 - ALCOHOL USE, UNSPECIFIED WITH INTOXICATION, UNSPECIFIED SNOMED Code(s): 70110080 (2) Depression Current Visit: Yes Status: Acute Code(s): F32.9 - MAJOR DEPRESSIVE DISORDER, SINGLE EPISODE, UNSPECIFIED SNOMED Code(s): 61464518 (3) Suicidal ideation Current Visit: Yes Status: Acute Code(s): R45.851 - SUICIDAL IDEATIONS SNOMED Code(s): 4018944 (4) Drug overdose Current Visit: No Status: Acute Code(s): T50.901A - POISONING BY UNSP DRUG/MEDS/BIOL SUBST, ACCIDENTAL, INIT SNOMED Code(s): 52836900 Plan: The patient is admitted to acute inpatient psychiatry team will defer to primary regarding ongoing psychotropic medications and ongoing cognitive behavioral therapy. Patient is admitted with suicidal ideation attempt with drug overdose status post receiving activated charcoal without any residue found, currently hemodynamically stable. Awaiting admission labs. We'll plan to sign off if they are normal. I appreciate opportunity to be involved in ongoing care of this patient, for further questions or concerns please do not hesitate to contact Inpatient Team
[2019-03-21] MEDS: MELATONIN 3 MG TABLET PO SCH (20:16)
[2019-03-21] MEDS: LORazepam 1 MG TAB PO SCH (20:16)
[2019-03-22] MEDS: VENLAFAXINE HCL ER 75 MG CAP PO SCH (08:58)
[2019-03-22] MEDS: NICOTINE 14MG/24HR PATCH TRANSDERM SCH (08:58)
[2019-03-22] MEDS: LORazepam 1 MG TAB PO SCH (08:58)
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
[2019-03-22] MEDS: hydrOXYzine PAMOATE 25 MG CAP PO PRN (19:24)
[2019-03-22] MEDS: MELATONIN 3 MG TABLET PO SCH (20:25)
[2019-03-22] MEDS: carBAMazepine 200 MG TAB PO SCH (20:25)
[2019-03-22] MEDS: traZODone HCL 50 MG TAB PO PRN (23:11)
[2019-03-23] MEDS: VENLAFAXINE HCL ER 75 MG CAP PO SCH (08:08)
[2019-03-23] MEDS: carBAMazepine 200 MG TAB PO SCH ×2 (08:08→19:58)
[2019-03-23] MEDS: NICOTINE 14MG/24HR PATCH TRANSDERM SCH (08:09)
[2019-03-23] MEDS: hydrOXYzine PAMOATE 25 MG CAP PO PRN ×2 (08:10→19:58)
--- NOTE | 2019-03-23 12:15 | P.PN ---
Progress Note - Text Progress Note Date: 03/23/19 Interval History: Patient is a 29-year-old male who was admitted for suicidal ideation, he states he been drinking and took 26 of his Vistaril because he was feeling depressed. He states he been off his meds for about a week because he had received them in the mail yet. He states that he is typically been drinking about 12 beers a day and each weekend until he passes out due to boredom. Patient is followed up at the [facility] in [place] and states he was last seen there a month and a half ago. Patient states that he has not been sleeping well and reports no current suicidal thoughts. States his sleep has not been restful. Mental Status: Appearance/Attitude: Patient is casually dressed, makes eye contact and was cooperative. Behavior: Patient does not display any psychomotor agitation or retardation. Speech/Language: Patient's speech is spontaneous of normal volume and rhythm and he is coherent Thought Process: Patient is goal-directed there is no evidence of loose association or flight of ideas Thought Content: Patient denies any auditory or visual hallucinations and no delusions or paranoid ideation or elicited. Patient states that he not been sleeping well, is not restful sleep, he still feeling depressed and states that he been drinking alcohol the weekends due to boredom states he has few social contacts and no family in the area other than his brothers. Patient reports he been off his medications for over a week because he had received. He states he is eating here. Suicidal/Homicidal Ideation: Patient denies any current suicidal or homicidal ideation Sensorium/Cognition: Patient is alert and oriented to person, place and time Mood/Affect: Patient's mood remains slightly depressed and his affect is appropriate to his mood Insight/Judgment: Patient's insight and judgment are fair Assessment: Patient discussed the fact that he been off his medications for a week because they did not come in the mail, he also reports drinking 12 beers a day on the weekends because he is bored and drinks until he passes out. Patient states he became depressed and took an overdose of Vistaril. He states he has few social contacts and has nothing to do on the weekends patient has been attending groups and activities. And states that he hasn't seen his therapist at the [facility] for over a month and a half. Plan: Patient will continue on Effexor 225 mg extended release in the morning, Tegretol 200 mg twice a day, melatonin 3 mg at bedtime and trazodone 50 mg at bedtime on an as-needed basis, patient was not restarted on lithium as he felt that the addition of the lithium had not been helpful. Patient will also continue on Vistaril 50 mg as needed for anxiety. Patient's vital signs are stable and he is not reporting any symptoms of alcohol withdrawal. Patient continues to require hospitalization to further stabilize his mood. Patient declined a referral for inpatient alcohol rehab.
[2019-03-23 13:25] LABS: Hemoglobin A1C 5.5 % (4.0-6.0)
[2019-03-23] MEDS: LORazepam 1 MG TAB PO PRN (14:50)
[2019-03-23] MEDS: MELATONIN 3 MG TABLET PO SCH (19:58)
[2019-03-23] MEDS: traZODone HCL 50 MG TAB PO PRN (23:10)
[2019-03-24 07:03] VITALS: RESP 16
[2019-03-24] MEDS: NICOTINE 14MG/24HR PATCH TRANSDERM SCH (08:15)
[2019-03-24] MEDS: VENLAFAXINE HCL ER 75 MG CAP PO SCH (08:16)
[2019-03-24] MEDS: carBAMazepine 200 MG TAB PO SCH ×2 (08:16→21:06)
[2019-03-24] MEDS: hydrOXYzine PAMOATE 25 MG CAP PO PRN ×2 (08:18→16:52)
--- NOTE | 2019-03-24 13:37 | P.PN ---
Progress Note - Text Progress Note Date: 03/24/19 Interval History: Patient is a 29-year-old male is seen today and he states that he slept better last night, is feeling better now that he's been restarted on his medications. He states that his energy is improved, he signed any suicidal thoughts and states that he's been eating well. He reported no withdrawal symptoms. Patient states that he is doing well with the Vistaril for anxiety and states it's working better than it did when he was using it at home. Patient reports no side effects from his medication. Mental Status: Appearance/Attitude: Patient is neatly and appropriately dressed, makes eye contact and is cooperative Behavior: Patient does not display any psychomotor agitation or retardation. Speech/Language: Patient's speech is spontaneous of normal volume and rhythm and he is coherent Thought Process: Patient is goal-directed there is no evidence of loose association or flight of ideas Thought Content: Patient is denying any auditory or visual hallucinations and no delusions or paranoid ideation or elicited. Patient states that he is doing better, he is no longer feeling depressed and states that he is not feeling anxious. He states his energy level is improved and his sleep has improved now that he's been restarted on his medications. He states he is not having any withdrawal symptoms from his alcohol use. He reports his appetite is good. Suicidal/Homicidal Ideation: Patient denies any current suicidal or homicidal ideation Sensorium/Cognition: Patient is alert and oriented to person, place, and time and his recent and remote memory are grossly intact Mood/Affect: Patient's mood is pleasant and his affect is appropriate Insight/Judgment: Patient's insight and judgment are fair Assessment: Patient states now that he's been restarted on his medications he is feeling much better no longer feeling depressed, denies any suicidal ideation and states he sleeping better and eating better. He denies any withdrawal symptoms from alcohol. Patient denies any side effects from his medication and states that the Vistaril has been working well for his anxiety and better than he thinks it was working as an outpatient. Patient continues to express his interest in an alcohol rehab program. Plan: Patient will continue on his current medications, patient continues to express an interest in attending a rehab program for alcohol use, patient follows up at the [facility], patient continues to require hospitalization consider discharge and next several days.
[2019-03-24] MEDS: LORazepam 1 MG TAB PO PRN (14:46)
[2019-03-24] MEDS: MELATONIN 3 MG TABLET PO SCH (21:06)
[2019-03-25] MEDS: traZODone HCL 50 MG TAB PO PRN (01:36)
[2019-03-25] MEDS: carBAMazepine 200 MG TAB PO SCH ×2 (08:44→21:26)
[2019-03-25] MEDS: VENLAFAXINE HCL ER 75 MG CAP PO SCH (08:44)
[2019-03-25] MEDS: NICOTINE 14MG/24HR PATCH TRANSDERM SCH (08:44)
[2019-03-25] MEDS: hydrOXYzine PAMOATE 25 MG CAP PO PRN ×2 (08:49→16:38)
[2019-03-25] MEDS ORDERED: NICOTINE POLACRILEX 2 MG GUM BUCCAL PRN (10:03)
[2019-03-25] MEDS ORDERED: traZODone HCL 100 MG TAB PO PRN (10:19)
--- NOTE | 2019-03-25 12:59 | P.PN ---
Progress Note - Text Progress Note Date: 03/25/19 Interval History: Patient is a 29-year-old male who was seen today and he reports that he doesn't sleep well because his roommate keeps him awake by going to the bathroom frequently. Patient reports that his mood is much more stable, is no longer feeling suicidal or depressed. He states that he is eating well and does not report any withdrawal symptoms. He states that he has no urge to drink and finds that the Vistaril here in the hospital's been more effective controlling his anxiety. Patient states that he continues to be interested in following up with alcohol rehab after discharge. Mental Status: Appearance/Attitude: Patient is neatly dressed, makes eye contact and is cooperative. Behavior: Patient does not display any psychomotor agitation or retardation. Speech/Language: Patient's speech is spontaneous of normal volume and rhythm and he is coherent Thought Process: Patient is goal-directed there is no evidence of loose association or flight of ideas Thought Content: Patient denies any auditory or visual hallucinations and no delusions or paranoid ideation or elicited. Patient states that he has mood is much more stable, he is not having any urges to drink and states that the Vistaril is been more effective here in the hospital in controlling his anxiety than when he was using it as an outpatient. Patient states that he is not sleeping well because his roommate is up using the bathroom all night long and this awakens the patient. He reports that his appetite is good and he does not report any withdrawal symptoms Suicidal/Homicidal Ideation: Patient denied any current suicidal or homicidal ideation Sensorium/Cognition: Patient is alert and oriented to person, place and time and his recent and remote memory are grossly intact Mood/Affect: Patient's mood is stable and his affect is appropriate Insight/Judgment: Patient's insight and judgment are fair Assessment: Patient's vital signs are stable, he is not reporting any withdrawal symptoms and is eating well. Patient states his sleep is disrupted due to his roommate using the bathroom frequently at night. He reports his mood is stable, he is not feeling depressed or suicidal and states that the Vistaril is been effective in controlling his anxiety. Patient did request an increase in his trazodone to assist with his sleep. Patient and I had a long discussion regarding his alcohol use, consequences of continued use of alcohol and he discussed how much better he is been feeling since he hasn't been drinking while he is been in the hospital. Patient also discussed his use of tobacco and the patient's interest in stopping but states that he'll deal with his alcohol use first. Plan: Patient will continue on Tegretol 200 mg twice a day, melatonin 3 mg at bedtime, Effexor 225 mg extended release in the morning and Vistaril 50 mg as needed for anxiety and increase his trazodone to 100 mg at bedtime on an as- needed basis. I will discontinue the patient's Ativan as he is not having any withdrawal symptoms and his vital signs of been stable. Patient will be discharged tomorrow and follow-up with the [facility] in [place] who will be discussing alcohol rehab programs with the patient at his next appointment. Patient was agreeable with this plan and states that he feels he can remain sober until that appointment.
[2019-03-25] MEDS: MELATONIN 3 MG TABLET PO SCH (21:26)
[2019-03-26 06:58] VITALS: BP 110/54; PULSE 71; TEMP 98
[2019-03-26] MEDS: carBAMazepine 200 MG TAB PO SCH (09:17)
[2019-03-26] MEDS: VENLAFAXINE HCL ER 75 MG CAP PO SCH (09:17)
[2019-03-26] MEDS: hydrOXYzine PAMOATE 25 MG CAP PO PRN (09:18)
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
== END 2019-03-26 13:03 | disposition home or self-care (01) | DRG 885 ==
LOC: EC 01:55 → 3MHU 12:24
PROVIDERS: ADMIT Psychiatry & Neurology Psychiatry; ATTEND Psychiatry & Neurology Psychiatry
DX: F33.2 Major depressive disorder, recurrent severe without psychotic features (principal); F17.200 Nicotine dependence, unspecified, uncomplicated; F43.10 Post-traumatic stress disorder, unspecified; T43.592A Poisoning by other antipsychotics and neuroleptics, intentional self-harm, initial encounter; Y92.9 Unspecified place or not applicable; F10.129 Alcohol abuse with intoxication, unspecified; F41.9 Anxiety disorder, unspecified; Z62.810 Personal history of physical and sexual abuse in childhood; Z79.899 Other long term (current) drug therapy; Z91.5 Personal history of self-harm; Y90.8 Blood alcohol level of 240 mg/100 ml or more; Z82.5 Family history of asthma and other chronic lower respiratory diseases
CPT/HCPCS: 36415; 80048; 80061; 80306; 80320; 80329; 82075; 83036; 83520; 84443; 85025; 93005; 99285